=== PATIENT | female | born 1950 | race Caucasian/White ===

== ENCOUNTER 2017-01-13 08:13 | Emergency (ER) | payer OTHER ==
[2017-01-13 08:50] LABS: BASOPHIL# 0.1 X 10^3uL (0.0-0.1); BASOPHILS 0.8 % (0.0-2.0); EOSINOPHILS 1.6 % (0.0-6.0); EOSINOPHILS# 0.1 X 10^3uL (0.0-0.4); HEMATOCRIT 48.2 % (36.0-48.0); HEMOGLOBIN 16.7 g/dL (12.0-16.0); LYMPHOCYTES 16.5 % (20.0-40.0); LYMPHOCYTES# 1.1 X 10^3uL (0.8-3.8); MEAN CELL VOLUME 85.6 fL (80.0-100.0); MEAN CORPUS. HGB CONCENTRATION 34.7 g/dL (32.0-36.0); MEAN CORPUSCULAR HEMOGLOBIN 29.7 pg (29.0-35.0); MEAN PLATELET VOLUME 6.8 fL (7.4-10.4); MONOCYTES 7.5 % (2.0-10.0); MONOCYTES# 0.5 X 10^3uL (0.2-1.0); NEUTROPHILS 73.6 % (54.0-75.0); NEUTROPHILS# 4.6 X 10^3uL (2.6-6.7); PLATELET COUNT 253 X 10^3uL (130-440); RED BLOOD COUNT 5.63 X 10^6uL (4.20-6.10); RED CELL DISTRIBUTION WIDTH 13.3 % (11.5-14.5); WHITE BLOOD COUNT 6.4 X 10^3uL (3.9-10.7)
[2017-01-13 08:59] LABS: BLOOD UREA NITROGEN 16 mg/dL (7-17); CALCIUM 9.2 mg/dL (8.4-10.2); CHLORIDE 101 mmol/L (98-107); CREATININE 0.8 mg/dL (0.5-1.0); EST GLOMERULAR FILTRATION RATE > 60 mL/min; GLUCOSE 105 mg/dL (70-100); MAGNESIUM 2.4 mg/dL (1.6-2.3); POTASSIUM 3.9 mmol/L (3.5-5.1); SODIUM 140 mmol/L (137-145)
[2017-01-13 09:12] LABS: TROPONIN I < 0.012 ng/mL (0.00-0.034)
--- NOTE | 2017-01-13 11:21 | CT REPORT ---
HISTORY: Shortness of breath and chest pain with elevated serum d-dimer. COMPARISON: None. TECHNIQUE: This examination was performed using automated exposure control, adjustment of mA or kV according to patient size, and/or use of iterative reconstruction technique. Axial CT imaging from the thoracic i nlet through the upper abdomen following administration of IV contrast during peak opacification of t he pulmonary arteries, multiplanar reformatted and 3-D images are evaluated. 100cc Isovue-370 contrast. FINDINGS: Pulmonary arteries: CT angiography demonstrates no filling defect within the main pulmonary artery to suggest acute pulmonary embolus. There is suboptimal opacification of the pulmonary arteries second emanuel to poor bolus timing; no large central embolus is seen.The main pulmonary artery is top normal in caliber at 30 mm. Lungs: The lungs are normally inflated. Dependent airspace opacities in the lower lobes bilaterally a re most consistent with subsegmental atelectatic change. Airways: The major airways are patent. There is no evidence of bronchiectasis or endobronchial lesion . Pleura: There is no evidence of pleural effusion or pneumothorax. Mediastinum: The heart is enlarged. There is moderate to severe coronary show calcification. The hear t is not enlarged. There is mild coronary calcification. Abdomen: The visualized abdominal viscera appear unremarkable. Bones: The bones are normally mineralized and aligned. IMPRESSION: No evidence of large central pulmonary embolus. Suboptimal opacification of the segmental subsegmenta l pulmonary arteries. Dependent airspace opacities in the lower lobes bilaterally are most consistent subsegmental atelecta sis. Final Electronic Signature: This report was electronically signed by Noam Rodriguez MD on 01/14/20 17 11:18 AM. ara /
--- NOTE | 2017-01-13 11:23 | ER NURSING DOCUMENTATION ---
Nurse's Notes [facility] Name:Rajwinder Cazares Age:66 yrs Sex:Female :1950 Arrival Date:01/13/2017 Time:08:13 BedTrauma-C Private MD: Diagnosis:Atypical Chest Pain Presentation: 01/13 08:17 Acuity: TJ 2 tg 08:30 Notified ED Physician of patient's arrival and CC Dr. Perez notified. tg 08:49 Presenting complaint: Patient states: Mild chest discomfort, radiates down left arm and tg into jaw. No SOB, diaphoresis, nausea. Pain does not get worse with exertion. Pain has come and gone for the past 4 days, arrived in EP 5 days ago after an 8 hour car ride. Transition of care: patient was not received from another setting of care. AIR CAT ACTIVATION no. 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 08:49 Method Of Arrival: Private Vehicle tg Triage Assessment: 08:45 General: Appears in no apparent distress, well developed, well nourished, Behavior is tg cooperative, pleasant. Pain: Complains of pain in sternum, left arm, jaw Pain currently is 0 out of 10 on a pain scale. At worst was 2 out of 10 on a pain scale. Quality of pain is described as aching, Pain began 4 days ago Is intermittent. Neuro: Level of Consciousness is awake, alert. Cardiovascular: Capillary refill < 3 seconds Heart tones present Denies fatigue, lightheadedness, palpitations, syncope, Rhythm is sinus rhythm Chest pain is described as vague, mild. Respiratory: Respiratory effort is even, unlabored, Breath sounds are clear bilaterally. GI:. Derm: Skin is pink, warm & dry. Historical: - Allergies: Morphine; - Home Meds: 1. aspirin 81 mg oral tab 1 tab once daily (Last dose: 01/13/2017 07:00) - PMHx: breast CA; sarcoma; - PSHx: HYSTERECTOMY; LUMPECTOMY; Cholecysectomy; - Tetanus: < 10 years. - Ebola Screening: : Patient negative for fever greater than or equal to 101.5 degrees Fahrenheit, and additional compatible Ebola Virus Disease symptoms. Patient denies exposure to infectious person. Patient denies travel to an Ebola-affected area in the 21 days before illness onset. No symptoms or risks identified at this time. . - Social history: Smoking status: Patient states was never smoker of tobacco. - Immunization history: Flu Vaccine < 1 year. Screenin:33 Infectious Disease Risk Unable to Obtain. Abuse screen: Denies threats or abuse. Denies tg injuries from another. Nutritional screening: No deficits noted. Assessment: 10:19 Reassessment: Pt returned from CT, they were unable to infuse CT contrast through the tg IV, and have requested that the IV be replaced or improved. IV has been re taped, flushes easily, pt reports no pain/burning at IV Site, good blood return. DI notified. . See Triage Assessment done by same RN. Vital Signs: 08:20 Temp 98.2(O); Weight 97.52 kg; Height 5 ft. 2 in. (157.48 cm); Pain 2/10; tg 08:23 BP 173 / 102 (auto/); tg 08:27 Pulse 81 MON; Resp 22; Pulse Ox 94% ; tg 08:45 BP 153 / 73 (auto/); tg 08:47 Pulse 71 MON; Resp 19; Pulse Ox 94% ; tg 09:27 Pulse 80 MON; Resp 19; Pulse Ox 95% ; tg 10:15 BP 163 / 89 (auto/); tg 11:18 Pulse 78; Resp 16; Pulse Ox 94% on R/A; Pain 0/10; tg 08:20 Body Mass Index 39.32 (97.52 kg, 157.48 cm) tg ED Course: 08:14 Patient arrived in ED. lm3 08:17 Triage completed. tg 08:25 EKG done. (by ED staff). Reviewed by Tj Perez MD. tg 08:30 Fabio Pitt, RN is Primary Nurse. tg 08:32 Valuables Remains with patient Patient has correct armband on for positive tg identification. Placed in gown. Bed in low position. Call light in reach. Side rails up X 1. Adult w/ patient. 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 Pulse ox on. 08:42 Inserted saline lock: 20 gauge in right antecubital area and blood collected. lpr 08:45 Tj Perez MD is Attending Physician. sc 09:45 Assisted to bathroom. tg 09:[address] dnn 10:01 CAT SCAN; CHEST ANGIO [id number] In Process Unspecified. EDMS 10:01 CAT SCAN CHEST ANGIO [id number] In Process Unspecified. EDMS 14:04 EKG attached rs Administered Medications: 08:45 Drug: Aspirin Chewable Tablet 243 mg; Route: PO; tg 11:22 Follow up: Response: No adverse reaction tg 09:45 Drug: NS 0.9% 1000 ml; Route: IV; Rate: 1 bolus; Site: right antecubital; Delivery: tg [place]; 11:18 Follow up: IV Status: Completed infusion; IV Intake: 500ml tg Intake: 11:18 IV: 500ml; Total: 500ml. tg Outcome: 10:53 Discharge ordered by . ms 11:18 Discharged to home ambulatory. tg 11:18 Condition: stable 11:18 Discharge Assessment: Patient awake and alert. 11:21 Instructed on discharge instructions, follow up and referral plans. tg 11:21 IV D/Ernesto 11:22 Patient left the ED. tg Signatures: Dispatcher [employer] EDFabio Canales RN RN tg Mary Burch RN RN rs Chew, Scott, MD MD sc Roberts, Leslie, RN RN lpr Norman, David dnn McKibbon-Moore, Lisa 3
--- NOTE | 2017-01-13 11:23 | ER PHYSICIAN DOCUMENTATION ---
Physician Documentation [facility] Name:Rajwinder Cazares Age:66 yrs Sex:Female :1950 Arrival Date:01/13/2017 Time:08:13 BedTrauma-C Private MD: Tj Brush Disposition: 01/13 10:30 Critical Care: not applicable. sc Disposition: 01/13/17 10:53 Discharged to Home/Self Care. Impression: Atypical Chest Pain. - Condition is Good. - Discharge Instructions: CHEST PAIN Atypical - CHEST PAIN, Uncertain Cause. - Medical Reconciliation form form. - Follow up: Emergency Department; When: As needed; Reason: Worsening of condition. - Problem is new. - Symptoms have improved. HPI: 10:28 This 66 yrs old Female presents to ER via Private Vehicle with complaints of sc Chest Pain > 30 y/o. 10:28 The patient or guardian reports chest pain that is located primarily in the anterior sc chest wall, chest diffusely. Onset: 3 day(s) ago. The pain radiates to the left shoulder, left neck, left jaw. There has been no movement of pain. Associated signs and symptoms: The patient has no apparent associated signs or symptoms. The chest pain is described as aching. Duration: The patient or guardian reports a single episode, that is still ongoing. Severity of pain: At its worst the pain was mild. Historical: - Allergies: Morphine; - Home Meds: 1. aspirin 81 mg oral tab 1 tab once daily (Last dose: 01/13/2017 07:00) - PMHx: breast CA; sarcoma; - PSHx: HYSTERECTOMY; LUMPECTOMY; Cholecysectomy; - Tetanus: < 10 years. - Ebola Screening: : Patient negative for fever greater than or equal to 101.5 degrees Fahrenheit, and additional compatible Ebola Virus Disease symptoms. Patient denies exposure to infectious person. Patient denies travel to an Ebola-affected area in the 21 days before illness onset. No symptoms or risks identified at this time. . - Social history: Smoking status: Patient states was never smoker of tobacco. - Immunization history: Flu Vaccine < 1 year. ROS: 10:29 Constitutional: Negative for fever, chills, and weight loss. sc Eyes: Negative for injury, pain, redness, and discharge. ENT: Negative for injury, pain, and discharge. Neck: Negative for injury, pain, and swelling. Respiratory: Negative for shortness of breath, cough, wheezing, and pleuritic chest pain. Abdomen/GI: Negative for abdominal pain, nausea, vomiting, diarrhea, and constipation. Back: Negative for injury and pain. MS/Extremity: Negative for injury and deformity. Skin: Negative for injury, rash, and discoloration. 10:29 Neuro: Negative for headache, weakness, numbness, tingling, and seizure. sc 10:29 Cardiovascular: Positive for chest pain. Exam: Constitutional: This is a well developed, well nourished patient who is awake, alert, and in no acute distress. Head/Face: Normocephalic, atraumatic. Eyes: Pupils equal round and reactive to light, extra-ocular motions intact. Lids and lashes normal. Conjunctiva and sclera are non-icteric and not injected. Cornea within normal limits. Periorbital areas with no swelling, redness, or edema. ENT: Nares patent. No nasal discharge, no septal abnormalities noted. Tympanic membranes are normal and external auditory canals are clear. Oropharynx with no redness, swelling, or masses, exudates, or evidence of obstruction, uvula midline. Mucous membranes moist. Neck: Trachea midline, no thyromegaly or masses palpated, and no cervical lymphadenopathy. Supple, full range of motion without nuchal rigidity, or vertebral point tenderness. No meningismus. Chest/axilla: Normal chest wall appearance and motion. Nontender with no deformity. No lesions are appreciated. Cardiovascular: Regular rate and rhythm with a normal S1 and S2. No gallops, murmurs, or rubs. Normal PMI, no JVD. No pulse deficits. Respiratory: Lungs have equal breath sounds bilaterally, clear to auscultation and percussion. No rales, rhonchi or wheezes noted. No increased work of breathing, no retractions or nasal flaring. Abdomen/GI: Soft, non-tender, with normal bowel sounds. No distension or tympany. No guarding or rebound. No evidence of tenderness throughout. Back: No spinal tenderness. No costovertebral tenderness. Full range of motion. Skin: Warm, dry with normal turgor. Normal color with no rashes, no lesions, and no evidence of cellulitis. MS/ Extremity: Pulses equal, no cyanosis. Neurovascular intact. Full, normal range of motion, negative Homans's, calves equal bilaterally. 10:29 Neuro: Awake and alert, GCS 15, oriented to person, place, time, and situation. in Cranial nerves II-XII grossly intact. Motor strength 5/5 in all extremities. Sensory grossly intact. Cerebellar exam normal. Normal gait. 10:30 Cardiovascular: Rate: normal, Rhythm: regular. in Vital Signs: 08:20 Temp 98.2(O); Weight 97.52 kg; Height 5 ft. 2 in. (157.48 cm); Pain 2/10; tg 08:23 BP 173 / 102 (auto/); tg 08:27 Pulse 81 MON; Resp 22; Pulse Ox 94% ; tg 08:45 BP 153 / 73 (auto/); tg 08:47 Pulse 71 MON; Resp 19; Pulse Ox 94% ; tg 09:27 Pulse 80 MON; Resp 19; Pulse Ox 95% ; tg 10:15 BP 163 / 89 (auto/); tg 11:18 Pulse 78; Resp 16; Pulse Ox 94% on R/A; Pain 0/10; tg 08:20 Body Mass Index 39.32 (97.52 kg, 157.48 cm) tg MDM: 09:04 Patient medically screened. in 10:30 Differential diagnosis: acute myocardial infarction, acute pericarditis, anxiety, chest sc wall pain, gastroesophageal reflux disease (GERD). Patient took aspirin within the past 24 hours. Patient refused fibrinolytic. Data reviewed: vital signs, nurses notes, lab test result(s), EKG, radiologic studies, and as a result, I will discharge patient. Data interpreted: gambling monitor: rate is 80 beats/min. ECG:. 14:04 EKG attached 01/13 09:08 Order name: DDIMER [facility] 01/13 09:09 Interpretation: Abnormal: DDIMER 598. in 01/13 09:09 Order name: CBC AUTO DIF, MDIF/RMOR IF IND [facility] 01/13 09:09 Interpretation: Normal. in 01/13 09:12 Order name: BASIC METABOLIC PANEL; Complete Time: 09:17 [facility] 01/13 09:17 Interpretation: Normal. in 01/13 09:12 Order name: MAGNESIUM; Complete Time: 09:17 [facility] 01/13 09:17 Interpretation: Normal. in 01/13 09:12 Order name: TROPONIN I; Complete Time: 09:17 [facility] 01/13 09:17 Interpretation: Normal. in 01/13 10:01 Order name: CAT SCAN; CHEST ANGIO [id number]; Complete Time: 11:07 [facility] 01/13 11:07 Interpretation: Normal. in 01/13 10:01 Order name: CAT SCAN CHEST ANGIO [id number] [facility] 01/13 11:22 Order name: CAT SCAN; CHEST ANGIO [id number] [facility] 01/13 08:31 Order name: 12-lead EKG; Complete Time: 08:32 tg 01/13 08:31 Order name: Iv Saline Lock; Complete Time: 08:45 tg 01/13 08:31 Order name: Place Patient On Monitor; Complete Time: :32 tg 01/13 08:31 Order name: Pulse Ox Continuous; Complete Time: tg EC:30 Rate is 80 beats/min. Rhythm is regular. QRS [place] is Normal. AL interval is normal. QRS sc interval is normal. QT interval is normal. No Q waves. T waves are Normal. No ST changes noted. Clinical impression: Abnormal EKG without significant change. Interpreted by me. Reviewed by me. Dispensed Medications: 08:45 Drug: Aspirin Chewable Tablet 243 mg; Route: PO; tg 11:22 Follow up: Response: No adverse reaction 09:45 Drug: NS 0.9% 1000 ml; Route: IV; Rate: 1 bolus; Site: right antecubital; Delivery: tg [place] Tub[place]; 11:18 Follow up: IV Status: Completed infusion; IV Intake: 500ml tg Signatures: Fabio Pitt RN RN tg Stalker, Rachael, RN RN rs Chew, Scott, MD MD in
== END 2017-01-13 11:22 | disposition home or self-care (01) ==
LOC: ER 08:13
DX: R07.89 Other chest pain (principal); R79.1 Abnormal coagulation profile; R94.31 Abnormal electrocardiogram [ECG] [EKG]; Z79.82 Long term (current) use of aspirin; Z85.3 Personal history of malignant neoplasm of breast
CPT/HCPCS: 71275; 80048; 83735; 84484; 85025; 85379; 93005; 96360; 96361; 99285